=== PATIENT | male | born 1960 | race Caucasian/White ===

== ENCOUNTER 2023-03-01 10:38 | Day surgery (SDC) | payer SELFPAY ==
[2023-03-01] VITALS (7 sets, daily range): BP systolic 175–199; BP diastolic 91–95; PULSE 67–78; RESP 15–18; TEMP 36.4–36.9; O2SAT 98–100; BMI 28.7
--- NOTE | 2023-03-01 10:47 | ED.GENADUL_ITS ---
Discharge Plan Disposition Patient Disposition: Home Condition: Stable Discharge Details Clinical Impression: Perianal abscess Primary Care Provider: None,None ED Provider: Live Palomares Medical Decision Making This is an overall well-appearing normothermic and not tachycardic 62-year-old male with significant rectal tenderness and swelling concerning for perirectal abscess for which patient will undergo CT scan. There is no sign of any hemorrhoids. Patient does not have a history of inflammatory bowel disease. Patient is not septic so I did not order a lactate nor treat empirically with broad-spectrum antibiotics. We will keep patient n.p.o. pending CT scan. Soft nontender abdomen so I am not concerned for intra-abdominal infection. Patient is not sexually active so I am not concerned for sexually transmitted infection. Will check ESR and CRP to assess for inflammation. Patient does have elevated blood pressure and takes lisinopril. I offered acetaminophen but he said that he had taken this earlier today. 12:15 PM Elevated CRP at 1.7 mg/dL. Elevated creatinine no prior for comparison. Will provide 1 L of IV fluids. Mildly elevated ESR at 28 mm/h. CBC with no leukocytosis nor anemia nor thrombocytopenia. CT scan is showing a small left through which I will consult general surgery. We will also advised patient of his 5 mm left lung nodule. 12:[address] Dougherty from general surgery arrived and advised her of patient's perianal abscess for which she is planning a bedside I&D. 3:30 PM Patient was ultimately taken to the OR by general surgery. I ordered metronidazole and ciprofloxacin prior to surgery. HPI General Date/Time Provider Initiated Documentation: 03/01/23 10:47 . 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 He reports that his pain began 5 days ago. He last had a bowel movement approximately 4 days ago. His pain has been gradually worsening. He went to urgent care 3 days ago. He was advised [id number] treatment for hemorrhoids. He has had increasing pain decreased appetite. He denies fevers and chills. He has been taking preparation H at home. He is concerned for the possibility of an abscess. He has never had a history of hemorrhoids in the past. He has not taken any falls and denies any trauma to his rectum. He denies inflammatory bowel disease and specifically denies history of Crohn's and ulcerative colitis. He is not sexually active. He has never had any surgeries to his abdomen in the past. He took acetaminophen prior to arrival. Related Data Home Medications Medication Instructions Recorded Confirmed lidocaine HCl 2 % mucosal jelly in 1 applic topical QID PRN pain #125 03/01/23 applicator mL lisinopril 40 mg tablet 40 mg PO DAILY 03/01/23 03/01/23 metformin 1,000 mg tablet 1,000 mg PO BID 03/01/23 03/01/23 metoprolol succinate 25 mg 25 mg PO BID 03/01/23 03/01/23 tablet,extended release 24 hr tramadol 50 mg tablet 50 mg PO Q6H PRN #14 tabs 03/01/23 Previous Rx's Medication Instructions Recorded lidocaine HCl 2 % mucosal jelly in 1 applic topical QID PRN pain #125 03/01/23 applicator mL tramadol 50 mg tablet 50 mg PO Q6H PRN #14 tabs 03/01/23 Allergies Allergy/AdvReac Type Severity Reaction Status Date / Time Penicillins Allergy Unverified 03/01/23 10:43 General Stated Complaint: [facility] EMILY: 3 PFSH All Active Problems (Updated 03/01/23 @ 14:46 by Aimee Albrecht MD) Perianal abscess (Acute) Social History Smoking/Tobacco Use Status: Never Smoking risk assessment performed?: Yes Alcohol Intake: current Alcohol Intake frequency: 0-2 drinks per day Alcohol type: beer Substance use type: does not use Exam Narrative Exam Narrative: General: Well-appearing in no acute distress speaking in complete sentences. Head: Normocephalic, atraumatic. Eye: Pupils equal, round reactive to light. Extraocular eye movements intact. No conjunctival injection. No scleral icterus. Ear, nose, mouth, throat: Grossly normal inspection. Normal voice, handling secretions normally. Neck: Trachea midline. Cardiovascular: Well-perfused distal extremities. Regular rate and rhythm no murmurs. Respiratory: Nonlabored respiration. Clear lungs bilaterally. Gastrointestinal: Nondistended abdomen. Soft nontender. Rectal: At the approximately 7 o'clock position there is redundant tissue that appears swollen. Mild erythema. This area is significantly tender. Digital rectal exam the tenderness from external exam at the 7 o'clock position extends this internally. No obvious fluctuance. No drainage. Musculoskeletal: No edema. Moving all 4 extremities spontaneously. Skin: Normal for age and race, grossly normal temperature and turgor. No acute rash. Neurologic: Alert and appropriate, no apparent acute deficits. Psychiatric: Mood and manner are appropriate. Grooming and personal hygiene are appropriate. Course Vital Signs Vital signs: Vital Signs Temperature 36.9 C 03/01/23 10:40 Pulse 78 03/01/23 10:40 Respiratory Rate 18 03/01/23 10:40 Pulse Oximetry 98 03/01/23 10:40 Temperature 36.9 C 03/01/23 10:40 Temperature Source Oral 03/01/23 10:40 Pulse 78 03/01/23 10:40 Respiratory Rate 18 03/01/23 10:40 Respiratory Effort Normal, Non-Labored 03/01/23 10:42 Blood Pressure 196/91 H 03/01/23 10:43 Pulse Oximetry 98 03/01/23 10:40 Oxygen Delivery Method Room Air 03/01/23 10:40 Oxygen Flow Rate 0 03/01/23 10:40 PAWSS Have you Been Recently Intoxicated or Drunk Within the Last 30 days?: No Have you Ever Experienced Previous Episodes of Alcohol Withdrawal?: No Have you ever Experienced Withdrawal Seizures?: No Have you ever Experienced Delirium Tremens(DT)s?: No Have you ever undergone Alcohol Rehabilitation Treatment (i.e, inpt ot outpatient treatment programs)?: No Have you ever Experienced Blackouts?: No Have you ever Combined Alcohol with other Downers within the last 90 days?: No Have you ever Combined Alcohol with any other Substance of Abuse during the last 90 days?: No Positive Blood Alcohol level on Presentation? [PCS.BAL]: No Evidence of Increased Autonomic Activity (i.e. HR>120, tremor, sweating, agitation, nausea)?: No Result: 0
--- NOTE | 2023-03-01 11:00 | DI.CT_ITS ---
Exam(s) CT ABDOMEN PELVIS W EXAM: CT ABDOMEN PELVIS W CLINICAL HISTORY: Concern for left perianal abscess. TECHNIQUE: Imaging Protocol: Axial computed tomography images with coronal and sagittal reformatted images were created and reviewed CONTRAST MATERIAL: Intravenous: Omnipaque 350 Contrast volume:100 ml Oral: No no COMPARISON: No exams were available for comparison FINDINGS: ABDOMEN: Lung Bases: 5 millimeter circumscribed nodule medial left lung base. Liver: Mild fatty infiltration.. No measurable mass. Gallbladder and biliary tract: No radiodense calculus or dilation. Pancreas: Normal density, no abnormal calcifications or inflammatory process. Spleen: Normal. Kidneys: Normal size, contour and axis. No radiodense stones or obstructive uropathy. Simple left re nal cyst. No follow-up recommended. No suspicious masses seen. Adrenal glands: 2 centimeter circumscribed low-density nodule left adrenal gland, likely adenoma. Abdominal Aorta: Abdominal portion non-dilated. Mild atherosclerotic changes. Soft tissues: Unremarkable. PELVIS: Bladder: Mild diffuse wall thickening. No calculi.No focal mass. Bowel: No obstruction. No bowel wall thickening. Appendix normal. Peritoneal cavity: No ascites, collection or mesenteric inflammatory response. Bones: Within normal limits for age. Reproductive organs: Prostate mildly enlarged. Lymph nodes: Unremarkable. Soft tissues: 0.6 x 0.6 x 2 centimeter fluid collection in the immediate perianal soft tissues could represent a small abscess. Impression: Small left perianal abscess. 5 millimeter circumscribed nodule left lung base ???Solid nodules smaller than 6 mm (those 5 mm or sm aller) do not require routine follow-up in patients at low risk (grade 1C; strong recommendation, low - or [id number] evidence). (Michael et al., 2017) RADIATION DOSE DELIVERED: 1,006.05mGy.cm Total DLP DATA REPOSITORY: All CT scans at this facility are submitted to the National Radiology Data Registry (NRDR) Dose Index Registry (DIR) with the [employer] (ACR). RADIATION OPTIMIZATION: All CT scans at this facility use at least one of these dose optimization te chniques: automated exposure control; mA and/or kV adjustment per patient size (includes targeted exa ms where dose is matched to clinical indication); or iterative reconstruction.
[2023-03-01 11:35] LABS: Abs Immature Grans 0.04 10^3/uL (0.0-0.06); Absolute Basophil Count 0.05 10^3/uL (0.0-0.2); Absolute Eosinophil Count 0.26 10^3/uL (0.0-0.7); Absolute Lymphocyte Count 1.53 10^3/uL (1.2-3.4); Absolute Monocyte Count 0.75 10^3/uL (0.1-0.8); Absolute Neutrophil Count 4.79 10^3/uL (1.2-6.7); Basophils % 0.7; Eosinophils % 3.5; HCT 37.8 % (40.0-50.0); HGB 13.5 g/dL (13.5-17.5); Immature Grans % 0.5; Lymphocytes % 20.6; MCH 34.1 pg (27.0-33.0); MCHC 35.7 % (32.0-36.0); MCV 96 fL (80-95); MPV 8.8 fL (8.0-11.0); Monocytes % 10.1; Neutrophils % 64.6; Platelet Count 163 10^3/uL (130-400); RBC 3.96 10^6/uL (4.36-5.78); RDW 11.8 % (11.8-14.1); RDW-SD 40.8 fL; WBC 7.42 10^3/uL (4.4-10.8)
[2023-03-01 11:36] LABS: ESR 28 mm/hr (0-20)
[2023-03-01 11:46] LABS: Anion Gap 9.6 mmol/L (3-11); BUN 15 mg/dL (7-18); CO2 24.4 mmol/L (21.0-32.0); CREATININE 1.6 mg/dL (0.70-1.30); Calcium 9.7 mg/dL (8.5-10.1); Chloride 102 mmol/L (98-107); Estimated GFR 48.72 (mL/min/1.73m2); Glucose 153 mg/dL (74-106); Potassium 4.3 mmol/L (3.5-5.1); Sodium 136 mmol/L (136-145)
[2023-03-01] MEDS: Omnipaque 350 MG/ML 100 ML BTL IJ (11:49)
[2023-03-01] MEDS: Normal Saline - Diluent 50 ML VIAL IJ (11:49)
[2023-03-01] MEDS: Normal Saline Flush 10 ML SYR IVP (11:53)
[2023-03-01] MEDS: Normal Saline 1,000 ML 1000 ML IV (12:30)
--- NOTE | 2023-03-01 12:53 | W.ANESPRE ---
General Info Date of Service Date Performed: 03/01/23 Height: 6 ft 3 in Weight: 104.326 kg Body Mass Index (BMI): 28.7 Surgical Procedure: Operation Date: 03/01/23 13:55 Proposed Procedure Side Surgeon p Excision-Maura Rectal Abscess Aimee Albrecht MD Meds Allergies and Home Medications Allergies Allergy/AdvReac Type Severity Reaction Status Date / Time Penicillins Allergy Unverified 03/01/23 10:43 Home Medication Medication Instructions Recorded lisinopril 40 mg tablet 40 mg PO DAILY 03/01/23 metformin 1,000 mg tablet 1,000 mg PO BID 03/01/23 metoprolol succinate 25 mg 25 mg PO BID 03/01/23 tablet,extended release 24 hr Current Visit Medications: Current Medications Generic Name Dose Route Start Last Admin Trade Name Freq PRN Reason Stop Dose Admin Sodium Chloride 1,000 mls @ 1,000 mls/hr 03/01/23 12:15 Saline 1000ml Bag IV 03/01/23 13:14 BOLUS ONE Metronidazole 500 mg in 100 mls @ 100 mls/hr 03/01/23 12:47 Flagyl IVPB 03/01/23 13:46 NOW ONE Ciprofloxacin 400 mg in 200 mls @ 200 mls/hr 03/01/23 12:47 Cipro I.V. IVPB 03/01/23 13:46 NOW ONE Protocol Iohexol 100 ml 03/01/23 12:00 03/01/23 11:49 Omnipaque 350 Mg/Ml 100 Ml Btl IJ 03/31/23 23:59 100 ml DIRECTED FRANCES Administration Sodium Chloride 50 ml 03/01/23 12:00 03/01/23 11:49 Normal Saline - Diluent 50 Ml Vial IJ 50 ml .FOR DI USE FRANCES Administration Sodium Chloride 0 ml 03/01/23 11:53 03/01/23 11:53 Normal Saline Flush 10 Ml Syr IVP 10 ml PRN PRN Administration PFSH Active Problems Active Problems: Problem Status Onset Code Perianal abscess K61.0 Incidental lung nodule R91.1 Simple renal cyst N28.1 Tobacco Smoking/Tobacco Use Status: Never Alcohol Alcohol Intake: current Alcohol intake frequency: 0-2 drinks per day Alcohol type: beer Substance Use Substance use type: does not use Vital Signs and Lab Results Vital Signs Most Recent Vital Signs in EMR: Most Recent Vital Signs Temp Pulse Resp BP Pulse Ox 36.9 C 78 18 196/91 H 98 03/01/23 10:40 03/01/23 10:40 03/01/23 10:40 03/01/23 10:43 03/01/23 10:40 Lab Results 03/01/23 11:28 03/01/23 11:28 Blood Type / Crossmatch: No Data to Display Complete Blood Count: White Blood Count 7.42 10^3/uL (4.4-10.8) 03/01/23 11:28 Red Blood Count 3.96 10^6/uL (4.36-5.78) L 03/01/23 11:28 Hemoglobin 13.5 g/dL (13.5-17.5) 03/01/23 11:28 Hematocrit 37.8 % (40.0-50.0) L 03/01/23 11:28 Platelet Count 163 10^3/uL (130-400) 03/01/23 11:28 Complete Metabolic Panel: Sodium 136 mmol/L (136-145) 03/01/23 11:28 Potassium 4.3 mmol/L (3.5-5.1) 03/01/23 11:28 Chloride 102 mmol/L (98-107) 03/01/23 11:28 Carbon Dioxide 24.4 mmol/L (21.0-32.0) 03/01/23 11:28 BUN 15 mg/dL (7-18) 03/01/23 11:28 Creatinine 1.6 mg/dL (0.70-1.30) H 03/01/23 11:28 Est GFR (CKD-EPI 2020) 48.72 (mL/min/1.73m2) 03/01/23 11:28 Calcium 9.7 mg/dL (8.5-10.1) 03/01/23 11:28 Glucose 153 mg/dL (74-106) H 03/01/23 11:28 C-Reactive Protein 1.70 mg/dL (0.0-0.3) H 03/01/23 11:28 Liver Function Panel: No Data to Display Coagulation Panel: No Data to Display Cardiac Panel: No Data to Display Arterial Blood Gas: No Data to Display Venous Blood Gas: No Data to Display Pancreas Panel: No Data to Display Thyroid Panel: No Data to Display Infectious Disease: No Data to Display Blood Cultures: No Data to Display Toxicology Panel: No Data to Display Anesthesia Assessment and Plan Anesthesia History Personal History: No History of Anesthesia Complications Family History: No Family History of Anesthesia Complications Exercise Tolerance Exercise Tolerance: Metabolic Equivalents>4 Pertinent Negatives Pertinent Negatives: No Symptoms of GERD, No Major Cardiovascular Symptoms or Complaints, No Major Pulmonary Symptoms or Complaints and No History of CVA/TIA Cardiac & Pulmonary Exam Cardiac Exam: Normal S1/S2 Heart Sounds Pulmonary Exam: Clear Bilateral Breath Sounds Implantable Cardiac Device Does patient have a Pacemaker or an ICD?: No Airway Exam Known Difficult Airway: No Mallampati Class: 2 Mouth Opening: Normal (> 3cm) Thyromental Distance: Greater than 3 cm Neck Range of Motion: Full ROM Neck Circumference: Normal Teeth Condition: Normal Dentition ASA Classification ASA Score: ASA 2 Emergency Case?: Yes NPO Status NPO Status: NPO Clears >2 hours, Solids >8 hours Anesthesia Plan Resuscitation Status: Full Code Anesthesia Technique: Spinal Anesthesia Airway Planned: Natural Airway Monitors Used: Standard Monitors
[2023-03-01] MEDS: metroNIDAZOLE 500 MG/100 ML BAG 100 MG IVPB (13:02)
--- NOTE | 2023-03-01 13:12 | HPE_ITS ---
Assessment and Plan Assessment and plan (1) Perianal abscess: Status: Acute Assessment and plan: Mr. Silva is a pleasant 62 year old male with a perianal abscess. Because it is now draining internally I recommend exam under anesthesia with transanal drainage of abscess and placement of drain. Complications include but are not limited to bleeding, pain, infection, injury to rectal muscle, recurrance of the abscess. The procedure and complications were discussed with him. He understands the risks and complications and wishes to proceed. NO guarantees were given or implied. Anesthesia: general (without airway) Previous surgical intolerances: No Previous surgical complications: No Pulmonary risk factors: None Planned procedure: Yes Sleep apnea risks: No Can climb one flight of stairs (12-13 steps) in less than 30 seconds without stopping and without symptoms: Yes The surgery proposed for this patient is: low risk Active cardiac conditions: none Active risk factors: none ASA (acetylsalicylic acid): not used Beta blockers: taken today Proceed with exam under anesthesia and perianal abscess drainage History of Present Illness Consults Consult date: 03/01/23 Narrative: Mr. Gallego a pleasant 62 year old male who has been having rectal pain for the last 4 days. He describes the pain as stabbing and severe. He denies any fevers or chills. Workup in the ER revealed a nl WBC count, slight increase in the ESR and CT scan, which I reviewed showed a small andrew-rectal abscess. HIs PMHx is significant only diabetes and hypertension. He has never had surgery before. He has been NPO since last night Review of Systems Constitutional Constitutional: Denies fever(s), Denies headache(s), Reports poor appetite and Denies weight loss Eyes Eyes: Denies change in vision ENT Ears, Nose, Mouth, and Throat: Denies dysphagia and Denies headache(s) Cardiovascular Cardiovascular: Denies chest pain, Denies chest pain at rest, Denies irregular heart rhythm, Denies palpitations, Denies dyspnea and Denies dyspnea on exertion Respiratory Respiratory: Denies cough, Denies dyspnea and Denies dyspnea on exertion Gastrointestinal Gastrointestinal: Reports as per HPI, Denies dysphagia, Denies dyspepsia and Denies heartburn Genitourinary Genitourinary: Reports system reviewed and no additional complaints, except as documented Musculoskeletal Musculoskeletal: Reports system reviewed and no additional complaints, except as documented Integumentary/Breasts Skin/Breast: Reports system reviewed and no additional complaints, except as d ocumented Neurologic Neurologic: Reports system reviewed and no additional complaints, except as documented and Denies headache(s) Psychiatric Psychiatric: Reports system reviewed and no additional complaints, except as documented Endocrine Endocrine: Reports system reviewed and no additional complaints, except as documented and Denies palpitations PFSH All Active Problems Perianal abscess (Acute) Incidental lung nodule (Acute) Simple renal cyst (Acute) Social History Smoking/Tobacco Use Status: Never Smoking risk assessment performed?: Yes Alcohol Intake: current Alcohol Intake frequency: 0-2 drinks per day Alcohol type: beer Substance use type: does not use Meds Allergies and Home Medications Allergies Allergy/AdvReac Type Severity Reaction Status Date / Time Penicillins Allergy Unverified 03/01/23 10:43 Home Medications Medication Instructions Recorded Confirmed Type lisinopril 40 mg tablet 40 mg PO DAILY 03/01/23 03/01/23 History metformin 1,000 mg tablet 1,000 mg PO BID 03/01/23 03/01/23 History metoprolol succinate 25 mg 25 mg PO BID 03/01/23 03/01/23 History tablet,extended release 24 hr Exam Const General: comfortable and no acute distress Nutritional Appearance: average body habitus Orientation: alert and oriented x3 HENMT Head: normocephalic and atraumatic Resp Effort & Inspection: normal respiratory effort Auscultation: clear to auscultation bilaterally Cardio Rate: regular rate Rhythm: regular rhythm Heart Sounds: no gallops, no murmurs and no rubs GI Palpation: soft, no hepatosplenomegaly and nontender Auscultation: normal bowel sounds Rectal Exam: other Other: There is a skin tag at the 6 oclock position that is red and tender. As I was palpating the area there was purulent material coming from the rectum. Internal exam not done at this time Results Imaging Abdomen CT scan report/results: report reviewed and image reviewed CT scan - pelvis: report reviewed and image reviewed Labs 03/01/23 11:28 03/01/23 11:28 Labs: Laboratory Results - last 24 hr 03/01/23 03/01/23 03/01/23 11:28 11:28 11:28 WBC 7.42 RBC 3.96 L Hgb 13.5 Hct 37.8 L MCV 96 H MCH 34.1 H MCHC 35.7 RDW 11.8 Plt Count 163 MPV 8.8 Immature Gran % 0.5 Neutrophils % 64.6 Lymphocytes % 20.6 Monocytes % 10.1 Eosinophils % 3.5 Basophils % 0.7 Nucleated RBC % 0.0 Absolute Neutrophils 4.79 Absolute Lymphocytes 1.53 Absolute Monocytes 0.75 Absolute Eosinophils 0.26 Absolute Basophils 0.05 ESR 28 H Sodium 136 Potassium 4.3 Chloride 102 Carbon Dioxide 24.4 Anion Gap 9.6 BUN 15 Creatinine 1.6 H Est GFR (CKD-EPI 2020) 48.72 Glucose 153 H Calcium 9.7 C-Reactive Protein 1.70 H Last Vital Signs Temp 98.5 F 03/01/23 10:40 Pulse 78 03/01/23 10:40 Resp 18 03/01/23 10:40 BP 196/91 H 03/01/23 10:43 Pulse Ox 98 03/01/23 10:40
[2023-03-01] MEDS: Lactated Ringers 1,000 ML 30 ML IV (13:44)
[2023-03-01] MEDS: CIPROFLOXACIN 400 MG/200 ML BAG 200 MG IVPB (14:05)
[2023-03-01] MEDS: Lidocaine 2% Jelly 11 ML SYR (14:28)
--- NOTE | 2023-03-01 14:39 | PDOC.DSDIS_ITS ---
Date of service: 03/01/23 Time of Service: 15:11 Discharge Plan Disposition Patient Disposition: Home Discharge Details Attending Provider: Aimee Albrecht Primary Care Provider: None,None Home Meds and New Rx's Prescriptions: New tramadol 50 mg tablet 50 mg PO Q6H PRNQty: 14 0RF lidocaine HCl 2 % jelly in applicator 1 applic topical QID PRN (Reason: pain) Qty: 125 0RF Continued metformin 1,000 mg Tablet 1,000 mg PO BID metoprolol succinate 25 mg Tablet Extended Release 24 Hr 25 mg PO BID lisinopril 40 mg Tablet 40 mg PO DAILY Discharge Instructions Instructions: Anorectal Abscess and Anal Fistula (DC), Sitz Bath (DC) Additional Instructions: Activity at Home after surgery: 1. As tolerated Diet, Nutrition, & wound healin. Avoid alcohol until after you are recovered from your surgery 2. Make sure to eat plenty of lean protein (meat, fish, eggs, cottage cheese, beans) 3. Eat a variety of fruits and vegetables. Eat plenty of high fiber foods to avoid constipation. 4. Drink plenty of liquids to stay hydrated and avoid constipation Pain Medications: 1. Tylenol 650mg every 6 hours as needed and Ibuprofen 600 mg every 6 hours as needed. You may alternate between the 2 medications every 3 hours 2. If a narcotic has been prescribed take as directed only for breakthrough pain 3. Lidocaine ointment- apply over the sutures every 6 hours as needed for pain For Constipation: 1. Take Milk of Magnesia or MiraLax as needed for constipation Other: 1. You may shower daily. Do not scrub the incisions 2. Its OK to soak in a warm water 4-6 times per day for comfort 3. If you have not been able to pass urine for 6 hours once home please return to the Emergency department Wound Care: 1. Keep the incisions clean and dry Please call our office if you develop: 1. Fevers >101.5 2. Nausea or Vomiting 3. Worsening pain 4. Redness and thick discharge from the wounds If after hours please call the Hospital at and ask to speak to the on-call surgeon Stand Alone Forms: Anes.Nerve Block Instructions, Raul Larios ([facility]) Referrals: Melanie Hauser PA [[employer] MANAGER] - 03/03/23 9:30 am Activity:: Activity as Tolerated Shower/Bathe:: 24 hours Diet:: As Tolerated DS: Diagnosis Discharge Diagnosis (1) Perianal abscess: Status: Acute
--- NOTE | 2023-03-01 14:47 | ROE_ITS ---
Date of service: 03/01/23 Time of Service: 14:47 Operative Note Operative Note DATE OF PROCEDURE: 03/01/23 PRE-OP DIAGNOSIS: Perianal abscess POST-OP DIAGNOSIS: same PROCEDURE: drainage of abscess SURGEON: Aimee Albrecht DIRECT SERVICE PROFESSIONAL: Melanie Hauser ANESTHESIA TYPE: Other (saddle block) Refer to Anesthesia Record ESTIMATED BLOOD LOSS: 10 PATHOLOGY: none sent COMPLICATIONS: None Patient was transported to: same day Patient's condition: stable Indications: Mr. Silva is a pleasant 62 year old male seen in the ER with perirectal pain. CT scan showed a small abscess. Drainage was noted through his rectum on exam. Recommended exam under anesthesia and drainage of abscess with possible drain placement Risks, benefits and complications were reviewed with him. He understood the complications and wished to proceed. Findings: shallow abscess, just distal to the sphincter muscle. Procedure Description: After informed consent was obtained the patient was taken to the operating room. He was asked to sit at the side of the OR bed. A Sattle block was done by anesthesia. After we waited 5 minutes we had him lay down with assistance. At this time monitors were applied and a time out was done. The patients name, , allergies to medications, procedure to be done, Antibiotic given were reviewed. Fire risk was assessed. The patient was placed in stirrups. The patients perianal region was then prepped with iodine and draped in a standard fashion. Next a anal scope was gently placed into the rectum. At the 12 o'clock position there was purulent material noted. There was a 5 mm opening just distal to the sphincter muscle. The area was probed. It was oonly about 1 cm deep. The area was opened up a little more and the wound was then irrigated. Once irrigated the edges of the wound were closely approximated with 3-0 chronic interrupted sutures x 2. The skin was cleaned and dried. Lidocaine oitment was applied to the area. A 4x4 was gently placed into the rectum. After the skin was all clean and dry his legs were taken out of the stirrups. He was then placed back on the gurney and taken to [facility] in stable condition. There were no immediate complications.
--- NOTE | 2023-03-01 15:53 | W.ANESPOSTOP ---
Postoperative Evaluation Date, Time and Location Date Performed: 03/01/23 Time Performed: 15:53 Patient Location: Day Surgery Unit Vital Signs Most Recent Imported Vital Signs: Most Recent Vital Signs Temp Pulse Resp BP Pulse Ox 36.8 C 72 16 181/94 H 98 03/01/23 15:35 03/01/23 15:35 03/01/23 15:35 03/01/23 15:35 03/01/23 15:35 Pain Score Most Recent Pain Score: Most Recent Pain Score Pain Level 0 03/01/23 15:35 Assessment Mental Status: Awake (Alert & Oriented to Patient Baseline) Airway and Respiratory Function: Patent airway with normal (patient baseline) respiratory exam Cardiovascular Function: Hemodynamically Stable Hydration Status: Adequately Hydrated Nausea & Vomiting: No Nausea or Vomiting Pain: Pt. Denies Any Pain Peripheral Nerve Block: Other (Saddle block appropriately receding. Spinal orders in place and discussed importance of voiding, patient educated on need to void either prior to discharge, or in the event of low volume bladder scan, later tonight. If no void has taken place patient educated on need to return to Emergency Dept. ) Teaching Patient Teaching: Advised to seek followup for the following concerns (See explanation) Concerns: Poorly Controlled Hypertension (Discussed that current hypertension (beyond patients norm) could be related to current illness. Discussed importance of tracking blood pressures and if they remain elevated to seek care at PCP. )
--- NOTE | 2023-03-01 17:12 | NUR.NOTE ---
Assisted to recliner with contact supervision. Stated his feet felt a little numb and he was walking funny. Reassessed after 45 minutes and stated the sensation in his feet was back to normal. Ambulated to BR with contact supervision. Stood to void. Dr. Albrecht in earlier for work note. Cleared by anesthesia to drive self home after saddle block wears off. Nursing Note:
--- NOTE | 2023-03-02 09:33 | PGE_ITS ---
Date of Service Date of service: 03/01/23 Time of Service: 17:00 Assessment and Plan Assessment and plan (1) Perianal abscess: Status: Acute Assessment and plan: Rafal is doing well. NO complaints. He is doing well. We are awaiting return of his strength in his LE so he can safely be discharged to home. If unable to be discharged in the next hour we will keep him overnight as he has no transportation Follow up on Monday with Melanie Hauser for a wound check Subjective Subjective Interval history since last seen: Late entry Patient seen in [facility]. He is doing well. NO pain. Has eaten some soup and crackers. Awaiting return of feeling in her legs. Exam Const General: comfortable and no acute distress Nutritional Appearance: average body habitus Orientation: alert and oriented x3 HENMT Head: normocephalic and atraumatic Resp Effort & Inspection: normal respiratory effort Objective Last Vital Signs Temp 98.2 F 03/01/23 15:35 Pulse 72 03/01/23 15:35 Resp 15 03/01/23 22:16 BP 181/94 H 03/01/23 15:35 Pulse Ox 98 03/01/23 15:35 Laboratory Results - last 24 hr 03/01/23 03/01/23 03/01/23 11:28 11:28 11:28 WBC 7.42 RBC 3.96 L Hgb 13.5 Hct 37.8 L MCV 96 H MCH 34.1 H MCHC 35.7 RDW 11.8 Plt Count 163 MPV 8.8 Immature Gran % 0.5 Neutrophils % 64.6 Lymphocytes % 20.6 Monocytes % 10.1 Eosinophils % 3.5 Basophils % 0.7 Nucleated RBC % 0.0 Absolute Neutrophils 4.79 Absolute Lymphocytes 1.53 Absolute Monocytes 0.75 Absolute Eosinophils 0.26 Absolute Basophils 0.05 ESR 28 H Sodium 136 Potassium 4.3 Chloride 102 Carbon Dioxide 24.4 Anion Gap 9.6 BUN 15 Creatinine 1.6 H Est GFR (CKD-EPI 2020) 48.72 Glucose 153 H Calcium 9.7 C-Reactive Protein 1.70 H PAWSS Have you Been Recently Intoxicated or Drunk Within the Last 30 days?: No Have you Ever Experienced Previous Episodes of Alcohol Withdrawal?: No Have you ever Experienced Withdrawal Seizures?: No Have you ever Experienced Delirium Tremens(DT)s?: No Have you ever undergone Alcohol Rehabilitation Treatment (i.e, inpt ot outpatient treatment programs)?: No Have you ever Experienced Blackouts?: No Have you ever Combined Alcohol with other Downers within the last 90 days?: No Have you ever Combined Alcohol with any other Substance of Abuse during the last 90 days?: No Positive Blood Alcohol level on Presentation? [PCS.BAL]: No Evidence of Increased Autonomic Activity (i.e. HR>120, tremor, sweating, agitation, nausea)?: No Result: 0 Time Spent with Patient Time Spent with Patient: <25 minutes Time was spent: counseling the patient
== END 2023-03-01 17:19 | disposition home or self-care (01) ==
LOC: ER 14:46 → SUR 14:47
PROVIDERS: Emergency Provider Emergency Medicine; Visit Provider Surgery
PROC: (CPT 46040; principal; 2023-03-01 13:45)
DX: K61.0 Anal abscess (principal)
CPT/HCPCS: 46050; 80048; 85652; 96361; 96365; 96367; 99285; 74177; 85025; 86140; J0744; J3490